=== PATIENT | female | born 1965 | race Caucasian/White ===

== ENCOUNTER → 2021-07-17 12:04 | Outpatient (CLI) | payer OTHER, SELFPAY ==
--- NOTE | 2021-07-17 | DI.RAD.S_ITS ---
PROCEDURE: FL BARIUM SWALLOW INDICATIONS: Dysphagia, unspecified COMPARISON: None. FINDINGS: Function: There is abnormal esophageal peristalsis with delayed transit of ingested oral contrast involving the mid to distal esophagus. A few episodes of tertiary contractions were noted. No elicited gastroesophageal reflux. There is normal transit of a calibrated barium tablet through the esophagus into the stomach. Morphology: There appears to be normal mucosal morphology. Single contrast views show no esophageal strictures, extrinsic mass effects, or diverticula. Limited images of the stomach demonstrate normal appearance. Small sliding hiatal hernia is noted. IMPRESSION: 1. Abnormal esophageal peristalsis with delayed transit of ingested oral contrast as well as a few episodes of tertiary contractions resulting in delayed and retrograde flow of oral contrast. 2. No focal mass, strictures, or extrinsic mass effect identified. 3. Small sliding hiatal hernia was noted. Consider further evaluation with direct visualization/endoscopy. Dictated by: Erwin Mcmahon M.D. on 07/17/2021 at 17:10 Approved by: Erwin Mcmahon M.D. on 07/17/2021 at 17:19
== END ==
PROVIDERS: PCP Internal Medicine; Referring Provider Student in an Organized Health Care Education/Training Program; Visit Provider Student in an Organized Health Care Education/Training Program
DX: R13.10 Dysphagia, unspecified (principal); K44.9 Diaphragmatic hernia without obstruction or gangrene
CPT/HCPCS: 74221

== ENCOUNTER → 2021-08-27 10:49 | Outpatient (CLI) | payer OTHER, SELFPAY ==
[2021-08-27 13:32] LABS: COVID19 -Nasal RAPID Negative (Negative)
== END ==
PROVIDERS: PCP Internal Medicine; Referring Provider Student in an Organized Health Care Education/Training Program; Visit Provider Student in an Organized Health Care Education/Training Program
DX: Z01.812 Encounter for preprocedural laboratory examination (principal); Z20.822 Contact with and (suspected) exposure to COVID-19
CPT/HCPCS: 87635

== ENCOUNTER 2021-08-28 08:57 | Day surgery (SDC) | payer OTHER, SELFPAY ==
[2021-08-28] VITALS (7 sets, daily range): BP systolic 83–105; BP diastolic 45–73; PULSE 50–54; RESP 16–23; TEMP 36.3–37; O2SAT 21–100; BMI 28.1
--- NOTE | 2021-08-28 | PATH_ITS ---
[facility] Accession Number: [id number] . 01 Material submitted: . PART A: duodenum - DUODENUM BIOPSY PART B: gastrointestinal site - GASTRIC BIOPSY PART C: esophagus - ESOPHAGUS AT 41 FOR ESOPHAGEAL NODULE . 02 Diagnosis: A. Duodenum Biopsy: Duodenal mucosa with focal, mild active inflammation, non-specific. Negative for features of sprue, dysplasia, and malignancy. . B. Gastric Biopsy: Gastric antral mucosa with features of reactive gastropathy and mild chronic inflammation. Negative for Helicobacter organisms by immunohistochemistry. Negative for intestinal metaplasia. Negative for dysplasia or malignancy. . C. Esophagus at 41 for Esophageal Nodule: Foveolar hyperplasia, consistent with hyperplastic polyp. Separate fragment of fibrinopurulent exudate, suggestive of nearby erosion. Negative for intestinal metaplasia. [facility] 09/04/2021 0906 Local . 02 Comment: As part of routine supplier quality engineer, this case was also reviewed by Dr. Alvarez, who agrees with the interpretation. . 02 Electronically signed: . Kinza Maurice MD, Pathologist NPI- [id number] . 01 Gross description: . Part A: DUODENUM BIOPSY: Received in formalin are 4 fragment(s) of arce, soft tissue measuring 0.1 x 0.1 x 0.1 cm to 0.3 x 0.3 x 0.2 cm submitted entirely in 1 cassette(s) Part B: GASTRIC BIOPSY: Received in formalin are 2 fragment(s) of arce, soft tissue measuring 0.2 x 0.2 x 0.2 cm to 0.3 x 0.2 x 0.2 cm submitted entirely in 1 cassette(s) Part C: ESOPHAGUS AT 41 FOR ESOPHAGEAL NODULE: Received in formalin are 4 fragment(s) of arce, soft tissue measuring 0.1 x 0.1 x 0.1 cm to 0.2 x 0.2 x 0.2 cm submitted entirely in 1 cassette(s) /[facility] 08/29/20212013 Local . 02 Microscopic: . B. An immunohistochemical stain was performed to evaluate for Helicobacter organisms and is negative. The control stain showed appropriate reactivity. . * This test was developed and its performance characteristics determined by [facility]. It has not been cleared or approved by the U.[place]. Food and Drug Administration. The FDA has determined that such clearance or approval is not necessary. This test is used for clinical purposes. It should not be regarded as investigational or for research. . 02 Pathologist provided ICD-10: R13.10, R93.5, Z95.0, Z79.01 . 02 CPT . 727301, 570229, 204046, H32484 Performed at: 01 [facility] Cyt[facility] [address] [id number] MD Wilfred Maldonado MD Phone: [phone] Performed at: 02 [facility] [address] [place] [id number] MD Kiah Alvarez MD Phone: [phone]
[2021-08-28] MEDS: SODIUM CHLORIDE 0.9% 1,000 ML 70 ML IV (09:26)
--- NOTE | 2021-08-28 10:12 | PM.HP.1 ---
History of Present Illness History of Present Illness Date Patient Seen: 08/28/21 Time Patient Seen: 10:13 Chief complaint: Colonoscopy Narrative: Patient is a very pleasant 56-year-old female who presented for upper endoscopy. She was evaluated in the office on August 20, 2021 she denies any changes to her symptoms since that time. She does describe difficulty swallowing and a sense of fullness in her chest when swallowing. She had an abnormal esophagram on July 17, 2021 which was noted to have abnormal peristalsis however no mass or stricture was identified. A small hiatal hernia was noted. She does take long-term anticoagulation. Her last dose was Thursday of last week. Patient History Medical History (Updated 08/27/21 @ 16:20 by Candis Ruano RN) Complete heart block Congenital aortic stenosis Congestive heart failure Ischemic cardiomyopathy Pacemaker Surgical History (Updated 08/27/21 @ 16:20 by Candis Ruano RN) Aortic valve replaced History of cardiac cath Hx of CABG Family & Social History Social History: household members family Tobacco & Substance use: Smoking Status Never smoker alcohol intake current alcohol intake frequency 0-2 drinks per day Substance Use Type does not use Meds Home Medications and Allergies Home Medications Medication Instructions Recorded Confirmed Type furosemide 40 mg tablet 40 mg PO DAILY 08/27/21 08/28/21 History furosemide 40 mg tablet mg 08/27/21 History losartan 50 mg tablet 50 mg PO DAILY 08/27/21 08/28/21 History metoprolol succinate 25 mg 25 mg PO DAILY 08/27/21 08/28/21 History tablet,extended release 24 hr sertraline 50 mg tablet 50 mg PO DAILY 08/27/21 08/28/21 History spironolactone 25 mg tablet 25 mg PO DAILY 08/27/21 08/28/21 History warfarin 5 mg tablet 5 mg PO DAILY 08/27/21 08/27/21 History Allergies Allergy/AdvReac Type Severity Reaction Status Date / Time oxycodone Allergy Mild Verified 08/28/21 09:20 Review of Systems Review of Systems ROS: Yes All systems reviewed with the patient and are negative except as otherwise documented Exam Vital Signs (past 8 hours): - 08/28/21 09:08 Temperature 97.3 F L Pulse Rate 54 L Respiratory Rate 16 Blood Pressure 93/63 Pulse Oximetry 95 Oxygen Delivery Method Room Air Const General: cooperative, healthy appearing, comfortable, well developed, well groomed and No acute distress HENMT Head: normocephalic and atraumatic Resp Effort & Inspection: normal respiratory effort and able to speak in complete sentences Auscultation: clear to auscultation bilaterally Cardio Rate: regular rate Heart Sounds: S1 normal, S2 normal and click Assessment & Plan Assessment & Plan narrative: EGD with possible dilation today, further recommendations to follow Time Spent With Patient Critical Care time: I spent a total of [] minutes of critical care time on this patient's care today; this time is exclusive of procedural time.
--- NOTE | 2021-08-28 11:24 | PM.OP.EGD ---
Operative Date/Time/Diagnoses Date of procedure: 08/28/21 Time of procedure: 11:09 Procedure Notes Procedure in detail: Surgeon: Loly Abbott DO Procedure: Esophagogastroduodenoscopy with biopsy Preoperative diagnosis: Esophageal dysphagia Abnormal esophagram with esophageal dysmotility Long-term use of anticoagulants Postoperative diagnosis: Esophageal nodule at 41 cm, biopsied 2 cm hernia Erosive gastritis with gastric ulcerations Duodenal bulb ulcers Duodenitis in 2nd portion of duodenum Medications: Monitored anesthesia care, see Anesthesia notes Preanesthesia Assessment An H and P was performed/updated and the Px?s ASA class is 3. The procedure was discussed in detail with the patient. The potential risks and complications including infection, bleeding, missed lesions, perforation, need for surgery in case of perforation, prolonged hospital stay, and were explained. A brief question and answer period was allotted and once all questions were answered, informed consent was obtained. Last Coumadin 5 days per The patient was brought back to the procedure room and placed on standard monitoring. The patient?s vital signs were monitored continuously throughout the entire procedure. Prior to starting, a timeout was performed to confirm the patient?s identity, allergies, medications, and procedure. Procedure in detail The patient was placed in left lateral decubitus position and a bite block was inserted. The tip of the upper endoscope was placed into the mouth and advanced without difficulty under direct visualization into the esophagus. Esophagus: Esophageal nodule noted at 41 cm, biopsied to rule out dysplasia Stomach: 2 cm hiatal hernia Erosive gastritis with multiple shallow gastric ulcers, biopsies performed to rule out H pylori Duodenum: Multiple shallow duodenal bulbar ulcerations, duodenitis was noted to extend through the 2nd portion of the duodenum The patient tolerated the procedure well and will be brought back to the recovery area to be discharged once criteria are met. Complications There were no complications and estimated blood loss was minimal. Recommendations: Resume previous diet Continue outPx medications Follow up pathology results Recommend proton pump inhibitors twice daily for 8 weeks Repeat EGD in 8 weeks Office follow up to be scheduled An emergency contact number was given to the patient for any complications related to the procedure
== END 2021-08-28 12:10 | disposition home or self-care (01) ==
PROVIDERS: PCP Internal Medicine; Referring Provider Student in an Organized Health Care Education/Training Program; Visit Provider Student in an Organized Health Care Education/Training Program
PROC: 0DJ08ZZ Inspection of Upper Intestinal Tract, Via Natural or Artificial Opening Endoscopic (ICD-10-PCS; CPT 43235; principal; 2021-08-28 11:00)
DX: K22.89 Other specified disease of esophagus (principal); Z95.0 Presence of cardiac pacemaker; I50.9 Heart failure, unspecified; Z79.01 Long term (current) use of anticoagulants; K44.9 Diaphragmatic hernia without obstruction or gangrene; K25.3 Acute gastric ulcer without hemorrhage or perforation; K29.80 Duodenitis without bleeding; K29.50 Unspecified chronic gastritis without bleeding; K31.9 Disease of stomach and duodenum, unspecified
CPT/HCPCS: 43239; J2704